=== PATIENT | male | born 1990 | race Caucasian/White ===

== ENCOUNTER 2022-02-23 09:22 | Outpatient (CLI) | payer OTHER | END 2022-02-23 09:23 | disposition home or self-care (01) | LOC: BICULT 09:22 | PROVIDERS: ATTEND Orthopaedic Surgery | DX: M25.561 Pain in right knee (principal) ==

== ENCOUNTER 2022-03-28 15:51 | Outpatient (CLI) | payer OTHER ==
[2022-03-28 16:58] LABS: #Basophils 0.1 10x3/uL (0.0-0.2); #Eosinphils 0.3 10x3/uL (0.0-0.5); #Monocytes 0.7 10x3/uL (0.0-1.1); #Neutrophils 3.9 10x3/uL (1.5-8.4); %Basophils 0.9 % (0.0-2.0); %Eosinophils 4.1 % (0.0-6.0); %Lymphocytes 28.3 % (18.0-47.0); Hemoglobin 14.4 g/dL (13.5-17.5); Mean Corpuscular HGB CONC 33.3 g/dL (32.0-36.0); Mean Corpuscular Hemoglobin 27.4 pg (27.0-33.0); Mean Corpuscular Volume 82.5 fl (81.2-95.1); Mean Platelet Volume 10.4 fl (7.4-10.4); Platelet Count 205 10x3/uL (150-450); RBC Distribution Width 12.3 % (11.5-14.5); Red Blood Cell (RBC) Count 5.25 10x6/uL (4.32-5.72)
[2022-03-28 17:19] LABS: Anion Gap 14 mmol/L (10-20); BUN (Urea Nitrogen) 20 mg/dL (8.9-20.6); Calc. Creatinine Clearance 0 mL/min (70-130); Calcium 9.6 mg/dL (7.8-10.44); Carbon Dioxide 28 mmol/L (22-29); Chloride 101 mmol/L (98-107); Estimated GFR 101; Glucose 75 mg/dL (70-105); Potassium 4.3 mmol/L (3.5-5.1); Sodium 139 mmol/L (136-145)
== END 2022-03-28 15:52 | disposition home or self-care (01) ==
LOC: LABBT 15:51
PROVIDERS: ATTEND Orthopaedic Surgery
DX: Z01.812 Encounter for preprocedural laboratory examination (principal); M65.9 Synovitis and tenosynovitis, unspecified; Z20.822 Contact with and (suspected) exposure to COVID-19
CPT/HCPCS: 80048; 85025; 87811

== ENCOUNTER 2022-03-31 05:53 | Day surgery (SDC) | payer OTHER ==
[2022-03-29 10:56] VITALS: BMI 23.7
[2022-03-31] MEDS ORDERED: Midazolam HCl 2 mg/2 ml Vial ONE (06:56)
[2022-03-31] MEDS ORDERED: PROPOFOL 20 ML ONE (06:56)
[2022-03-31] MEDS ORDERED: Sodium Chloride 0.9% 100 ML ONE (07:21)
[2022-03-31] MEDS ORDERED: CEFAZOLIN 2 GM VIAL ONE (07:21)
[2022-03-31] MEDS ORDERED: fentaNYL Citrate/PF 100 MCG/2 ML SYRINGE ONE (07:43)
[2022-03-31] MEDS ORDERED: PROPOFOL 200 MG/20 ML VIAL ONE (07:52)
[2022-03-31] MEDS ORDERED: Lidocaine 1% PF 5 ML VIAL ONE ×2 (07:52)
[2022-03-31] MEDS ORDERED: diphenhydrAMINE 50 MG/ML VIAL ONE (07:52)
[2022-03-31] MEDS ORDERED: Bupivacaine HCl 0.5%/Epinephrine 1:200,000/PF 30 ml Vial ONE (07:52)
[2022-03-31] MEDS ORDERED: Ondansetron PF 4 MG/2 ML Vial ONE (07:52)
[2022-03-31] MEDS ORDERED: Lidocaine 2% w/Epinephrine 1:200K 20 ML VIAL ONE (07:52)
[2022-03-31] MEDS ORDERED: Ketorolac Tromethamine 30 MG/ML VIAL ONE (07:52)
[2022-03-31] MEDS ORDERED: Fentanyl 100 MCG/2 ML VIAL ONE (09:29)
[2022-03-31] MEDS ORDERED: Meperidine HCl/PF 25 MG/ML VIAL ONE (09:29)
[2022-03-31] MEDS ORDERED: HYDROcodone/Acetaminophen 5/325 mg Tablet ONE (10:24)
== END 2022-03-31 11:45 | disposition home or self-care (01) ==
LOC: SDC 05:53
PROVIDERS: ATTEND Orthopaedic Surgery
PROC: 0SBC4ZZ Excision of Right Knee Joint, Percutaneous Endoscopic Approach (ICD-10-PCS; principal; 2022-03-31)
DX: M65.88 Other synovitis and tenosynovitis, other site (principal); M25.461 Effusion, right knee; Z88.1 Allergy status to other antibiotic agents; Z88.8 Allergy status to other drugs, medicaments and biological substances
CPT/HCPCS: 88304; J0690; J1200; J1885; J2175; J2250; J2405; J2704; J3010; J3490